=== PATIENT | female | born 1955 | race Caucasian/White ===

== ENCOUNTER → 2020-10-15 | Outpatient (CLI) | payer OTHER ==
[~2020-10-15] MED LIST: REGADENOSON 0.4 MG/5 ML SYRINGE ONE
== END | disposition home or self-care (01) ==
LOC: CFH 07:42
PROVIDERS: ATTEND Internal Medicine Cardiovascular Disease
DX: I21.19 ST elevation (STEMI) myocardial infarction involving other coronary artery of inferior wall (principal); I21.29 ST elevation (STEMI) myocardial infarction involving other sites; I48.0 Paroxysmal atrial fibrillation; I25.10 Atherosclerotic heart disease of native coronary artery without angina pectoris
CPT/HCPCS: 78452; 93017; A9502; J2785

== ENCOUNTER 2020-11-04 07:40 | Emergency (ER) | payer OTHER ==
[~2020-11-04] VITALS: Ht 167.6 cm; Wt 92.3 kg
[2020-11-04] MEDS ORDERED: LEVO25TA4 PO (08:17)
[2020-11-04] MEDS ORDERED: DRON400T6 PO (08:17)
[2020-11-04] MEDS ORDERED: EZET10TA70 PO (08:17)
[2020-11-04] MEDS ORDERED: DIGO125T85 PO (08:17)
[2020-11-04] MEDS ORDERED: INSU100V8 SQ (08:17)
[2020-11-04] MEDS ORDERED: SIMV20TA19 PO (08:17)
[2020-11-04] MEDS ORDERED: APIX5TAB PO (08:17)
[2020-11-04] MEDS ORDERED: SODI650T PO (08:17)
[2020-11-04] MEDS ORDERED: INSU100C SQ-INSULIN (08:18)
[2020-11-04] MEDS ORDERED: NITR0.4T41 SL (08:18)
--- NOTE | 2020-11-04 08:18 | NUR ---
ASSUMED PT CARE. PT HERE D/T AFIB FOR 8 DAYS, HER MD SENT HER HERE TO GET CARDIOVERTED AND SHE IS FOLLOWING UP TOMORROW
[2020-11-04] MEDS ORDERED: DILTIAZEM 5 MG/ML, 5ML ONE (08:46)
[2020-11-04 08:56] LABS: BASOPHILS % (AUTO) 1 % (0-1); EOSINOPHILS % (AUTO) 2 % (1-7); LYMPHOCYTES % (AUTO) 11 % (22-44); MEAN CORPUSCULAR HEMOGLOBIN 30.9 pg (27.0-34.8); MEAN CORPUSCULAR HGB CONC 32.7 g/dL (32.4-35.8); MONOCYTES % (AUTO) 6 % (2-9); NEUTROPHILS % (AUTO) 80 % (42-75); PLATELET COUNT 143 x10^3/uL (130-400); RED BLOOD COUNT 3.92 x10^6/uL (3.82-5.3); RED CELL DISTRIBUTION WIDTH 13.1 % (9.6-15.2)
[2020-11-04 08:57] LABS: MD NO
[2020-11-04 08:58] LABS: ALANINE AMINOTRANSFERASE 21 U/L (12-78); ALBUMIN 3.7 g/dL (3.4-5.0); ANION GAP 8 mmol/L (5-15); CHLORIDE 114 mmol/L (98-107); CREATININE 2.28 mg/dL (0.55-1.02)
[2020-11-04] MEDS ORDERED: DILTIAZEM 5 MG/ML, 5ML IVPush ONE (09:00)
[2020-11-04 09:02] LABS: ALKALINE PHOSPHATASE 65 U/L (45-117); TOTAL PROTEIN 7.3 g/dL (6.4-8.2); TROPONIN I < 0.015 ng/mL (0.000-0.045)
[2020-11-04] MEDS ORDERED: SODIUM CHLORIDE FLUSH 10ML SYR IVF ONE (09:30)
[2020-11-04] MEDS ORDERED: PROPOFOL 10 MG/ML, 20ML ONE (09:37)
[2020-11-04] MEDS ORDERED: DILTIAZEM 5 MG/ML, 5ML IV ONE (10:00)
--- NOTE | 2020-11-04 10:00 | NUR ---
MEDICATED WAITING FOR CARDIVOSERION
--- NOTE | 2020-11-04 10:40 | NUR ---
CARDIOVERSION SUCCESSFUL, PT AWAKE AND ON ROOM AIR
[2020-11-04] MEDS ORDERED: ACETAMINOPHEN 500 MG TABLET ONE (10:53)
[2020-11-04] MEDS ORDERED: PROPOFOL 10 MG/ML, 20ML IVPush ONE (11:00)
[2020-11-04] MEDS ORDERED: ACETAMINOPHEN 500 MG TABLET PO ONE (12:00)
[2020-11-04 12:05] VITALS: BP 114/55
== END 2020-11-04 12:09 | disposition home or self-care (01) ==
LOC: ED 10:24
DX: I48.0 Paroxysmal atrial fibrillation (principal); I50.1 Left ventricular failure, unspecified; Z95.0 Presence of cardiac pacemaker; Z79.01 Long term (current) use of anticoagulants
CPT/HCPCS: 36415; 71045; 80053; 84484; 85025; 92960; 93005; 96374; 99152; 99291

== ENCOUNTER → 2021-02-12 | Outpatient (CLI) | payer OTHER ==
[~2021-02-12] MED LIST changes: +APIX5TAB PO; +DIGO125T85 PO; +DRON400T6 PO; +EZET10TA70 PO; +INSU100C SQ-INSULIN; +INSU100V8 SQ; +LEVO25TA4 PO; +NITR0.4T41 SL; -REGADENOSON 0.4 MG/5 ML SYRINGE ONE; +SIMV20TA19 PO; +SODI650T PO
== END | disposition home or self-care (01) ==
LOC: CFH 10:22
PROVIDERS: ATTEND Internal Medicine Cardiovascular Disease
DX: I08.8 Other rheumatic multiple valve diseases (principal); I25.10 Atherosclerotic heart disease of native coronary artery without angina pectoris; I25.2 Old myocardial infarction; I48.91 Unspecified atrial fibrillation; E11.9 Type 2 diabetes mellitus without complications
CPT/HCPCS: 93306